=== PATIENT | male | born 1970 | race Caucasian/White ===

== ENCOUNTER 2024-09-05 07:08 | Day surgery (SDC) | payer BC ==
--- NOTE | 2024-09-04 12:17 | NUR ---
PATIENT UNREACHABLE BY PHONE. MEDICATIONS AND ALLERGIES UPDATED WITH DR CARTER'S H&P DATED 08/14/24.
[2024-09-05] VITALS (15 sets, daily range): BP systolic 122–158; BP diastolic 76–106
[~2024-09-05] VITALS: Ht 193 cm; Wt 122.6 kg
[~2024-09-05 07:08] MED LIST: ATOR20 PO; Lactated Ringer's 1,000 ML IV SCH; METF500 PO; PIOG15 PO; propofoL 40 ML IV ONE
[2024-09-05] MEDS ORDERED: NS 500 ML IV SCH ×2 (07:25→07:50)
--- NOTE | 2024-09-05 08:11 | NUR ---
09/05/24 0811 Edith Leon CONFIRMED AND REVIEWED H&P, MEDCICATIONS, ALLERGIES, MEDICAL HISTORY, RESPIRATORY HISTORY, VITAL SIGNS, 3-LEAD EKG, CONSENTS, AND PHYSICIAN ORDERS. PATIENT CONFIRMS NPO STATUS AND AGREES WITH SCHEDULED PROCEDURE. MONITOR INTACT WITH CONTINUOUS PULSE OXIMETRY, CAPNOGRAPHY, 3-LEAD EKG, INTERMITTENT BP. SUPPLEMENTAL O2 TO BE TITRATED THROUGHOUT PROCEDURE TO MAINTAIN O2 SATURATION ABOVE 90%. PATIENT DETERMINED TO BE ASA APPROPRIATE FOR PROPOFOL SEDATION PRIOR TO START OF PROCEDURE BY DR. CARTER
--- NOTE | 2024-09-05 08:35 | NUR ---
PT TO DAY SURGERY STEP DOWN FROM COLONOSCOPY; BEDSIDE REPORT RECEIVED. PT IS AWAKE, ALERT AND ORIENTED; ABLE TO MOVE SELF IN BED. VSS. PT HAS NO COMPLAINTS AT THIS TIME.
--- NOTE | 2024-09-05 08:45 | NUR ---
PT DECLINES PO FLUIDS
--- NOTE | 2024-09-05 08:55 | NUR ---
Discharge instructions reviewed with patient. Patient verbalizes understanding. Copy given to patient to take home. Patient States Post-Procedure ride home has been arranged.
--- NOTE | 2024-09-05 09:03 | NUR ---
Patient up to Ambulate independently. Gait steady.
--- NOTE | 2024-09-05 09:06 | NUR ---
Discharged via wheelchair to private car for ride home.
== END 2024-09-05 09:07 | disposition home or self-care (01) ==
LOC: ORSCMMR 07:08 → ORD 08:00 → ORSCMMR 08:00 → ORD 09-19 08:00
PROVIDERS: Internal Medicine Gastroenterology
PROC: 0DBK8ZX Excision of Ascending Colon, Via Natural or Artificial Opening Endoscopic, Diagnostic (ICD-10-PCS; principal; 2024-09-05 08:00)
PROC: 0DBH8ZX Excision of Cecum, Via Natural or Artificial Opening Endoscopic, Diagnostic (ICD-10-PCS; principal; 2024-09-05 08:00)
DX: Z12.11 Encounter for screening for malignant neoplasm of colon (principal); D12.0 Benign neoplasm of cecum; D12.2 Benign neoplasm of ascending colon; E11.9 Type 2 diabetes mellitus without complications; E78.00 Pure hypercholesterolemia, unspecified; Z79.84 Long term (current) use of oral hypoglycemic drugs; Z79.899 Other long term (current) drug therapy
CPT/HCPCS: 82947; 88305; J2704; J7030